=== PATIENT | male | born 1970 | race Caucasian/White ===

== ENCOUNTER 2017-11-01 15:19 | Emergency (ER) | payer BC | END 2017-11-01 16:45 | disposition home or self-care (01) | LOC: EDH 15:19 | DX: S82.62XA Displaced fracture of lateral malleolus of left fibula, initial encounter for closed fracture (principal); M25.562 Pain in left knee; E07.9 Disorder of thyroid, unspecified; Z87.891 Personal history of nicotine dependence; W11.XXXA Fall on and from ladder, initial encounter; Y93.89 Activity, other specified; Y92.89 Other specified places as the place of occurrence of the external cause; Y99.8 Other external cause status | CPT/HCPCS: 29515; 73562; 73610 ==

== ENCOUNTER → 2022-05-25 | Outpatient (CLI) | payer BC ==
[~2022-05-25] MED LIST: AEC81 PO; ATOR40TA69 PO; ATOR40TA71 PO; CLOP75TA14 PO; LEVO175C2 PO; LOSA25TA2 PO; METO25TA6 PO; OMEP40CA21 PO
== END | disposition home or self-care (01) ==
LOC: SHCH 07:54
PROVIDERS: ATTEND Student in an Organized Health Care Education/Training Program
DX: I11.9 Hypertensive heart disease without heart failure (principal); E78.5 Hyperlipidemia, unspecified
CPT/HCPCS: 93306

== ENCOUNTER 2022-05-26 09:25 | Observation (INO) | payer BC ==
[~2022-05-26] VITALS: Ht 193 cm; Wt 164.1 kg
[2022-05-26 09:56] LABS: BASOPHILS % (AUTO) 0.4 % (0.0-5.0); EOSINOPHILS % (AUTO) 1.7 % (0.0-8.0); HEMATOCRIT 41.3 % (42-54); LYMPHOCYTES % (AUTO) 19.2 % (21.0-51.0); MEAN CORPUSCULAR HEMOGLOBIN 27.1 pg (27.0-33.0); MEAN CORPUSCULAR HGB CONC 32.7 g/dL (32.0-36.0); MEAN CORPUSCULAR VOLUME 82.8 fL (79-99); MONOCYTES % (AUTO) 4.4 % (3.0-13.0); NEUTROPHILS % (AUTO) 73.8 % (40.0-77.0); PLATELET COUNT (AUTO) 272 K/uL (130-400); RED BLOOD CELL COUNT(AUTO) 4.99 MIL/uL (4.50-6.20); RED CELL DISTRIBUTION WIDTH 14.1 % (11.0-15.5); WHITE BLOOD COUNT (AUTO) 7.6 K/uL (4.8-10.8)
[2022-05-26 10:17] LABS: TOTAL PROTEIN, SERUM 7.9 g/dL (6.0-8.3)
[2022-05-26 10:36] LABS: B-TYPE NATRIURETIC PEPTIDE 10 pg/mL (0-100)
[2022-05-26 10:48] LABS: ALBUMIN 3.6 g/dL (3.5-5.0); CREATININE 1.1 mg/dL (0.5-1.5)
[2022-05-26 10:54] LABS: MAGNESIUM 2.3 mg/dL (1.80-2.40)
[2022-05-26] MEDS: LEVOTHYROXINE 25 MCG TABLET PO SCH (12:30)
[2022-05-26] MEDS ORDERED: LEVOTHYROXINE 25 MCG TABLET ONE (12:31)
[2022-05-26] MEDS ORDERED: LEVOTHYROXINE 150 MCG TABLET ONE (12:31)
[2022-05-26] MEDS: LEVOTHYROXINE 150 MCG TABLET PO SCH (12:34)
[2022-05-26] MEDS ORDERED: DiphenhydrAMINE HCL 50 MG/ML VIAL IV PRN (14:00)
[2022-05-26] MEDS ORDERED: LACTULOSE 20 GM/30 ML UDCUP PO PRN (14:00)
[2022-05-26] MEDS ORDERED: NITROGLYCERIN 0.4 MG SL TAB SL PRN (14:00)
[2022-05-26] MEDS ORDERED: ACETAMINOPHEN 325 MG TAB PO PRN ×2 (14:00)
[2022-05-26] MEDS ORDERED: CLOPIDOGREL 300MG TAB PO ONE (14:00)
[2022-05-26] MEDS ORDERED: MAG/ALUM/SIMETH 30 ML UDCUP PO PRN (14:00)
[2022-05-26] MEDS ORDERED: GUAIFENESIN-DM 200/20 MG 10 ML PO PRN (14:00)
[2022-05-26] MEDS ORDERED: ONDANSETRON 4MG INJ IV PRN (14:00)
[2022-05-26] MEDS ORDERED: DIPHENHYDRAMINE HCL 25 MG CAPSULE PO PRN (14:00)
[2022-05-26] MEDS ORDERED: IOHEXOL 350 MG/ML 100ML INFUS..BTL IV ONE (14:06)
[2022-05-26] MEDS ORDERED: LEVO175C2 PO (14:56)
[2022-05-26] MEDS ORDERED: ATOR40TA71 PO (14:56)
[2022-05-26] MEDS ORDERED: OMEP40CA21 PO (14:56)
[2022-05-26] MEDS ORDERED: METO25TA6 PO (14:56)
[2022-05-26 16:15] VITALS: BP 138/72
[2022-05-26] MEDS: FAMOTIDINE 20MG TAB PO SCH (20:29)
[2022-05-26 20:48] VITALS: BP 150/81
[2022-05-26] MEDS ORDERED: FAMOTIDINE 20MG VIAL IV SCH (21:00)
[2022-05-26] MEDS ORDERED: ATORVASTATIN 40 MG TABLET PO SCH (21:00)
[2022-05-27] VITALS: BP 142/73
[2022-05-27 04:02] VITALS: BP 130/66
[2022-05-27 05:03] LABS: BASOPHILS % (AUTO) 0.4 % (0.0-5.0); EOSINOPHILS % (AUTO) 2.4 % (0.0-8.0); LYMPHOCYTES % (AUTO) 16.5 % (21.0-51.0); MEAN CORPUSCULAR HEMOGLOBIN 27.3 pg (27.0-33.0); MEAN CORPUSCULAR HGB CONC 32.5 g/dL (32.0-36.0); MONOCYTES % (AUTO) 6.2 % (3.0-13.0); NEUTROPHILS % (AUTO) 74.3 % (40.0-77.0); PLATELET COUNT (AUTO) 259 K/uL (130-400); RED BLOOD CELL COUNT(AUTO) 4.76 MIL/uL (4.50-6.20); WHITE BLOOD COUNT (AUTO) 8.5 K/uL (4.8-10.8)
[2022-05-27 05:15] LABS: MAGNESIUM 2.1 mg/dL (1.80-2.40); POTASSIUM 3.9 mmol/L (3.5-5.1)
[2022-05-27 07:29] LABS: APPEARANCE,URINE CLEAR (CLEAR); BILIRUBIN,URINE NEGATIVE (NEGATIVE); COLOR,URINE LIGHT-YELLOW (YELLOW); GLUCOSE, URINE (UA) NEGATIVE (NEGATIVE); KETONES,URINE NEGATIVE (NEGATIVE); LEUKOCYTE ESTERASE ,URINE NEGATIVE Leu/uL (NEGATIVE); NITRATE,URINE NEGATIVE (NEGATIVE); OCCULT BLOOD,URINE NEGATIVE (NEGATIVE); PROTEIN,URINE NEGATIVE (NEGATIVE); UROBILINOGEN,URINE 0.2 mg/dL (0.2-1.0)
[2022-05-27] MEDS: LEVOTHYROXINE 25 MCG TABLET PO SCH (07:56)
[2022-05-27] MEDS: LEVOTHYROXINE 150 MCG TABLET PO SCH (07:56)
[2022-05-27] MEDS ORDERED: ASPIRIN 81 MG EC TAB PO SCH (09:00)
[2022-05-27] MEDS ORDERED: LOSARTAN 25 MG TABLET PO SCH (09:00)
[2022-05-27] MEDS ORDERED: METOPROLOL TARTRATE 25 MG TAB PO SCH (09:00)
[2022-05-27] MEDS ORDERED: CLOPIDOGREL 75MG TAB PO SCH (09:00)
[2022-05-27] MEDS ORDERED: ENOXAPARIN SODIUM 40 MG/0.4 ML SYRINGE SQ SCH (09:00)
[2022-05-27] MEDS: FAMOTIDINE 20MG TAB PO SCH (09:18)
[2022-05-27] MEDS ORDERED: LEVOTHYROXINE 75 MCG TABLET PO SCH (09:30)
[2022-05-27 10:22] VITALS: BP 142/82
[2022-05-27] MEDS ORDERED: CLOP75TA14 PO (11:24)
[2022-05-27] MEDS ORDERED: AEC81 PO (11:24)
[2022-05-27] MEDS ORDERED: ATOR40TA69 PO (11:24)
[2022-05-27] MEDS ORDERED: LOSA25TA2 PO (11:29)
[2022-05-28] MEDS ORDERED: LEVOTHYROXINE 100 MCG TABLET PO SCH (06:30)
[2022-05-28] MEDS ORDERED: LEVOTHYROXINE 75 MCG TABLET PO SCH (06:30)
== END 2022-05-27 15:00 | disposition home or self-care (01) ==
LOC: EDH 09:25 → EDHIP 13:32 → UNDOADMOB 13:32 → INTOOBSV 13:36 → OBSVTOIN 13:36 → EDHIP 13:36 → 3BH 16:15
PROVIDERS: ADMIT Internal Medicine; ATTEND Internal Medicine
DX: R07.89 Other chest pain (principal); I10 Essential (primary) hypertension; E78.5 Hyperlipidemia, unspecified; E05.00 Thyrotoxicosis with diffuse goiter without thyrotoxic crisis or storm; Z87.891 Personal history of nicotine dependence; Z79.899 Other long term (current) drug therapy; E78.00 Pure hypercholesterolemia, unspecified; E89.0 Postprocedural hypothyroidism; E66.01 Morbid (severe) obesity due to excess calories
CPT/HCPCS: 99284; 82550; 83735 ×2; 83874; 84484; 80061; 80053; 83880; 85025 ×2; 36415 ×2; 71045; 75574; 93005 ×2; 96372; 84100; 80048; 81003; G0378 ×25; Q9967; J1650

== ENCOUNTER 2022-06-03 22:00 | Emergency (ER) | payer BC ==
[~2022-06-03] VITALS: Ht 193 cm; Wt 161.5 kg
[~2022-06-03 22:00] MED LIST changes: -ATOR40TA71 PO; -METO25TA6 PO; -OMEP40CA21 PO
[2022-06-03 22:31] LABS: BASOPHILS % (AUTO) 0.5 % (0.0-5.0); EOSINOPHILS % (AUTO) 2.5 % (0.0-8.0); HEMATOCRIT 42.7 % (42-54); LYMPHOCYTES % (AUTO) 17.1 % (21.0-51.0); MEAN CORPUSCULAR HEMOGLOBIN 27.3 pg (27.0-33.0); MEAN CORPUSCULAR VOLUME 82.6 fL (79-99); MONOCYTES % (AUTO) 5.6 % (3.0-13.0); NEUTROPHILS % (AUTO) 73.9 % (40.0-77.0); PLATELET COUNT (AUTO) 285 K/uL (130-400); RED BLOOD CELL COUNT(AUTO) 5.17 MIL/uL (4.50-6.20); RED CELL DISTRIBUTION WIDTH 14.2 % (11.0-15.5); WHITE BLOOD COUNT (AUTO) 9.8 K/uL (4.8-10.8)
[2022-06-03 22:43] LABS: CREATININE 1.1 mg/dL (0.5-1.5); POTASSIUM 4.3 mmol/L (3.5-5.1)
[2022-06-03 22:47] LABS: ALBUMIN 3.8 g/dL (3.5-5.0); TOTAL PROTEIN, SERUM 8.3 g/dL (6.0-8.3)
[2022-06-03 23:50] VITALS: BP 168/74
== END 2022-06-04 00:01 | disposition home or self-care (01) ==
LOC: EDH 22:00
DX: I10 Essential (primary) hypertension (principal); R00.2 Palpitations; I25.10 Atherosclerotic heart disease of native coronary artery without angina pectoris; E66.9 Obesity, unspecified; Z79.899 Other long term (current) drug therapy; Z68.41 Body mass index [BMI] 40.0-44.9, adult
CPT/HCPCS: 36415; 71045; 80053; 84484; 85025; 87804; 93005

== ENCOUNTER 2023-04-19 20:40 | Emergency (ER) | payer BC ==
[~2023-04-19] VITALS: Ht 193 cm; Wt 146.5 kg
[~2023-04-19 20:40] MED LIST changes: +CLOP-31 PO; -CLOP75TA14 PO
[2023-04-19 23:15] LABS: BASOPHILS # (AUTO) 0.02 K/uL (0.00-0.20); BASOPHILS % (AUTO) 0.2 % (0.0-5.0); EOSINOPHILS # (AUTO) 0.16 K/uL (0.00-0.70); EOSINOPHILS % (AUTO) 1.7 % (0.0-8.0); HEMATOCRIT 42.9 % (42-54); IMMATURE GRANULOCYTE ABSOLUTE 0.03 K/uL (0-1); LYMPHOCYTES # (AUTO) 1.8 K/uL (1.0-4.8); MEAN CORPUSCULAR HEMOGLOBIN 27.7 pg (27.0-33.0); MEAN CORPUSCULAR HGB CONC 33.1 g/dL (32.0-36.0); MEAN CORPUSCULAR VOLUME 83.6 fL (79-99); MONOCYTES # (AUTO) 0.5 K/uL (0.1-1.0); MONOCYTES % (AUTO) 5.5 % (3.0-13.0); NEUTROPHILS # (AUTO) 6.9 K/uL (1.8-7.7); NEUTROPHILS % (AUTO) 73.3 % (40.0-77.0); PLATELET COUNT (AUTO) 277 K/uL (130-400); RED BLOOD CELL COUNT(AUTO) 5.13 MIL/uL (4.50-6.20); RED CELL DISTRIBUTION WIDTH 13.8 % (11.0-15.5); WHITE BLOOD COUNT (AUTO) 9.4 K/uL (4.8-10.8)
[2023-04-19 23:35] LABS: CREATININE 0.9 mg/dL (0.5-1.5)
[2023-04-19 23:40] LABS: BILIRUBIN,TOTAL 0.5 mg/dL (0.2-1.0); TOTAL PROTEIN, SERUM 7.8 g/dL (6.0-8.3)
[2023-04-20] VITALS: BP 11/57; PULSE 55; RESP 11; O2SAT 99
== END 2023-04-20 01:13 | disposition home or self-care (01) ==
LOC: EDH 20:40
DX: I25.10 Atherosclerotic heart disease of native coronary artery without angina pectoris (principal); R00.1 Bradycardia, unspecified; E03.9 Hypothyroidism, unspecified; Z79.02 Long term (current) use of antithrombotics/antiplatelets; Z79.82 Long term (current) use of aspirin; Z79.890 Hormone replacement therapy; Z79.899 Other long term (current) drug therapy; Z95.5 Presence of coronary angioplasty implant and graft
CPT/HCPCS: 36415; 71045; 80053; 84484; 85025; 93005

== ENCOUNTER → 2023-04-21 | Emergency (ER) | payer BC | LOC: EDH 19:45 | DX: R42 Dizziness and giddiness (principal); Z53.21 Procedure and treatment not carried out due to patient leaving prior to being seen by health care provider ==